=== PATIENT | female | born 1930 | race Caucasian/White ===

== ENCOUNTER 2020-03-12 16:21 | Inpatient (IN) | payer MEDICARE, BC ==
--- NOTE | 2020-03-12 16:49 | ED ---
General Adult HPI - General Chief complaint: Neuro Symptoms/Deficit Stated complaint: Acute stroke, came from [place] Time Seen by Provider: 03/12/20 16:23 Source: patient, RN/MD (Spoke with transferring physician Dr. sheffield), EMS, RN notes reviewed, old records reviewed Mode of arrival: EMS Limitations: no limitations - History of Present Illness Initial comments: Patient is a pleasant 89-year-old female presenting to the emergency Department as a transfer with concerns for TIA. Patient reportedly had facial numbness 3 days ago. Patient reportedly had episode of problems moving her tongue and slurred speech that occurred this morning and last around 10 minutes. Symptoms have mostly resolved. Patient states there is still some mild difficulty moving her tongue. Onset of symptoms this morning was 8:30 AM. No extremity weakness or paresthesias. No confusion. - Related Data Allergies Allergy/AdvReac Type Severity Reaction Status Date / Time No Known Allergies Allergy Verified 03/12/20 16:37 Review of Systems ROS Statement: Those systems with pertinent positive or pertinent negative responses have been documented in the HPI. ROS Other: All systems not noted in ROS Statement are negative. Constitutional: Denies: fever Eyes: Denies: eye pain ENT: Reports: as per HPI. Denies: ear pain Respiratory: Denies: cough, dyspnea Cardiovascular: Denies: chest pain Endocrine: Denies: fatigue Gastrointestinal: Denies: abdominal pain Genitourinary: Denies: dysuria Musculoskeletal: Denies: back pain Skin: Denies: rash Neurological: Reports: as per HPI. Denies: headache, confusion Past Medical History Past Medical History: Hypertension Additional Past Medical History / Comment(s): Non-hodgkins lymphoma History of Any Multi-Drug Resistant Organisms: None Reported Past Surgical History: No Surgical Hx Reported Past Psychological History: No Psychological Hx Reported Smoking Status: Current some day smoker Past Alcohol Use History: None Reported Past Drug Use History: None Reported General Exam Limitations: no limitations General appearance: alert, in no apparent distress Head exam: Present: normocephalic Eye exam: Present: normal appearance, PERRL, EOMI. Absent: nystagmus ENT exam: Present: normal oropharynx, other (Tongue does deviate the left) Neck exam: Present: normal inspection Respiratory exam: Present: normal lung sounds bilaterally Cardiovascular Exam: Present: regular rate, normal rhythm GI/Abdominal exam: Present: soft. Absent: tenderness Extremities exam: Present: normal inspection Neurological exam: Present: alert, CN II-XII intact (Tongue is noted to be deviated the left). Absent: motor sensory deficit Expanded Speech: Present: fluid speech Cranial nerves: EOM's Intact: Normal, Tongue Deviation: Abnormal Left, Facial Sensation: Normal Sensory exam: Upper Extremity Light Touch: Normal, Lower Extremity Light Touch: Normal Motor strength exam: RUE: 5, LUE: 5, RLE: 5, LLE: 5 Eye Response: (4) open spontaneously Motor Response: (6) obeys commands Verbal Response: (5) oriented Psychiatric exam: Present: normal affect, normal mood Skin exam: Present: normal color Course Vital Signs 03/12/20 16:26 Temperature 98.2 F Pulse Rate 105 H Respiratory 18 Rate Blood Pressure 146/86 O2 Sat by Pulse 97 Oximetry Medical Decision Making - Medical Decision Making Case was discussed with Dr. Johnson, who will admit. Disposition Clinical Impression: Transient cerebral ischemia Disposition: ADMITTED IP TO THIS HOSP Is patient prescribed a controlled substance at d/c from ED?: No Referrals: Mark Acuña MD [Primary Care Provider] - 1-2 days Decision Time: 16:49
[2020-03-12] MEDS ORDERED: ASPIRIN 325 MG TAB PO STA (16:56)
[2020-03-12] MEDS: SODIUM CHLORIDE 0.9% 1,000 ML IV SCH (17:18)
--- NOTE | 2020-03-12 17:57 | US ---
EXAMINATION TYPE: US carotid duplex BILAT DATE OF EXAM: 03/12/2020 COMPARISON: NONE CLINICAL HISTORY: Stenosis. Stenosis per order. Hx hypertension. Hx Non-Hodgkin's Lymphoma per patien t. Patient has "lumps in her neck". EXAM MEASUREMENTS: RIGHT: Peak Systolic Velocity (PSV) cm/sec ----- Right CCA: 69.6 ----- Right ICA: 102.9 ----- Right ECA: 72.2 ICA/CCA ratio: 1.5 RIGHT: End Diastole cm/sec ----- Right CCA: 20.1 ----- Right ICA: 33.7 ----- Right ECA: 13.9 LEFT: Peak Systolic Velocity (PSV) cm/sec ----- Left CCA: 65.6 ----- Left ICA: 156.9 ----- Left ECA: 92.3 ICA/CCA ratio: 2.4 LEFT: End Diastole cm/sec ----- Left CCA: 21.6 ----- Left ICA: 56.4 ----- Left ECA: 14.6 VERTEBRALS (direction of flow): Right Vertebral: Antegrade Left Vertebral: Antegrade Rhythm: Normal Intimal thickening seen bilaterally. Minimal plaque seen bilateral bulbs. Left ICA dives quickly post erior. Elevated velocity within left ICA. Several hypoechoic areas seen bilaterally in the neck. The largest hypoechoic, vacular area seen on the right appears to measure: 3.6 x 2.8 x 1.7 cm. The largest hypoechoic, vacular area seen on the left appears to measure: 2.0 x 1.4 x 1.1 cm. IMPRESSION: There is antegrade flow in the vertebral arteries. 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 There are enlarged cervical lymph nodes that measure up to 3.6 x 1.7 cm. Criteria for Assigning % of Stenosis / Diameter reduction (Estimation based on the indirect measurements of the internal carotid artery velocities (ICA PSV). 1. Normal (no stenosis)=ICA PSV < 125 cm/s: ratio < 2.0: ICA EDV<40 cm/s. 2. Less than 50% stenosis=ICA PSV < 125 cm/s: ratio < 2.0: ICA EDV<40 cm/s. 3. 50 to 69% stenosis=ICA PSV of 125 to 230 cm/s: ration 2.0 ? 4.0: ICA EDV 40-100 cm/s. 4. Greater than 70% stenosis to near occlusion= ICA PSV > 230 cm/s: ratio > 4.0: ICA EDV > 100 cm/s. 5. Near occlusion= ICA PSV velocities may be low or undetectable: variable ratio and ICA EDV. 6. Total occlusion=unable to detect flow.
[2020-03-13] MEDS: SODIUM CHLORIDE 0.9% 1,000 ML IV SCH ×2 (03:54→16:38)
[2020-03-13 08:36] LABS: Cholesterol 167 mg/dL (<200); HDL Cholesterol 53 mg/dL (40-60); LDL Cholesterol,Calculated 97 mg/dL (0-99); Triglycerides 86 mg/dL (<150)
[2020-03-13] MEDS: ASPIRIN 325 MG TAB PO SCH (09:03)
--- NOTE | 2020-03-13 09:14 | ECHOF ---
Referral Reason:Thrombus MEASUREMENTS -------- HEIGHT: 147.3 cm WEIGHT: 53.5 kg BP: 126/65 RVIDd: 3.2 cm (< 3.3) IVSd: 1.2 cm (0.6 - 1.1) LVIDd: 3.7 cm (3.9 - 5.3) LVPWd: 1.1 cm (0.6 - 1.1) IVSs: 1.8 cm LVIDs: 1.9 cm LVPWs: 1.7 cm LAESV Index (A-L): 44.44 ml/m Ao Diam: 2.8 cm (2.0 - 3.7) AV Cusp: 2.0 cm (1.5 - 2.6) MV EXCURSION: 17.614 mm (> 18.000) MV EF SLOPE: 52 mm/s (70 - 150) EPSS: 0.2 cm MV E Anirudh: 0.86 m/s MV DecT: 242 ms MV A Anirudh: 1.17 m/s MV E/A Ratio: 0.74 AR PHT: 339 ms RAP: 5.00 mmHg RVSP: 57.31 mmHg FINDINGS -------- Sinus rhythm. This was a technically good study. The left ventricular size is normal. There is mild concentric left ventricular hypertrophy. Overa ll left ventricular systolic function is normal with, an EF between 55 - 60 %. The diastolic fillin g pattern indicates impaired relaxation 14.02. The right ventricle is normal in size. LA is severely dilated >40 ml/m2 The right atrial size is normal. Interatrial and interventricular septum intact. The aortic valve is trileaflet and appears structurally normal. There is mild aortic valve sclerosi s. There is mild aortic regurgitation. There is no evidence of aortic stenosis. Moderate mitral regurgitation is present. Moderate tricuspid regurgitation present. There is moderate pulmonary hypertension. The right atiya tricular systolic pressure, as measured by Doppler, is 57.31mmHg. Trace/mild (physiologic) pulmonic regurgitation. The aortic root size is normal. Normal inferior vena cava with normal inspiratory collapse consistent with estimated right atrial pre ssure of 5 mmHg. There is no pericardial effusion. CONCLUSIONS -------- 1. The left ventricular size is normal. 2. There is mild concentric left ventricular hypertrophy. 3. Overall left ventricular systolic function is normal with, an EF between 55 - 60 %. 4. The diastolic filling pattern indicates impaired relaxation 14.02.. 5. LA is severely dilated >40 ml/m2 6. There is mild aortic valve sclerosis. 7. There is mild aortic regurgitation. 8. Moderate mitral regurgitation is present. 9. Moderate tricuspid regurgitation present. 10. There is moderate pulmonary hypertension. 11. The right ventricular systolic pressure, as measured by Doppler, is 57.31mmHg. 12. Trace/mild (physiologic) pulmonic regurgitation. SIGN BUILDER: Margarita Connolly RDCS
--- NOTE | 2020-03-13 12:46 | P.HPIM ---
History of Present Illness Patient is a very pleasant 89-year-old female is admitted with concerns of DKA patient has problems with weakness on the left side of the tongue and some speech abnormality along with some question will facial numbness although patient denied any facial numbness to me. Patient symptoms has been going on for 3 days patient is admitted for possible TIA evaluation. Patient does have history of lymphoma wasn't chemotherapy years ago and this was discontinued. Patient had non-Hodgkin's lymphoma last received chemotherapy about 4 years ago. Patient does have lymphadenopathy in the neck. Patient appears to have only involvement of polyp cranial lower or hypoglossal nerve on the left side without any other cranial nerve involvement of any other cranial nerves. Patient denied any other weakness or paresthesias. Patient's LDL is 97 and carotid Doppler showed around 50-70% stenosis on the left internal cavitated and a 50% of that in the right internal carotid. Patient doesn't have any critical stenosis. Patient had echocardiogram which showed normal ejection fraction, no ventricular thrombus but did does have pulmonary hypertension moderate with obvious it. Of around 57. She was later evaluated by neurology and they recommended CT of the neck as there is a concern of compression of his 12 cranial nerve from his cervical lymphadenopathy. CTA of the neck is being obtained an MRI is being obtained as well to rule out any brainstem strokes Review of Systems REVIEW OF SYSTEMS: CONSTITUTIONAL: No fever, no malaise, no fatigue. HEENT: No recent visual problems or hearing problems. Denied any sore throat. CARDIOVASCULAR: No chest pain, orthopnea, PND, no palpitations, no syncope. PULMONARY: No shortness of breath, no cough, no hemoptysis. GASTROINTESTINAL: No diarrhea, no nausea, no vomiting, no abdominal pain. NEUROLOGICAL: No headaches. HEMATOLOGICAL: Denies any bleeding or petechiae. GENITOURINARY: Denies any burning micturition, frequency, or urgency. MUSCULOSKELETAL/RHEUMATOLOGICAL: Denies any joint pain, swelling, or any muscle pain. ENDOCRINE: Denies any polyuria or polydipsia. The rest of the 14-point review of systems is negative. Past Medical History Past Medical History: Hypertension Additional Past Medical History / Comment(s): Non-hodgkins lymphoma History of Any Multi-Drug Resistant Organisms: None Reported Past Surgical History: No Surgical Hx Reported Past Anesthesia/Blood Transfusion Reactions: No Reported Reaction Past Psychological History: No Psychological Hx Reported Smoking Status: Never smoker Past Alcohol Use History: None Reported Past Drug Use History: None Reported Medications and Allergies Home Medications Medication Instructions Recorded Confirmed Type Metoprolol Tartrate [Lopressor] 25 mg PO BID 03/12/20 03/12/20 History Allergies Allergy/AdvReac Type Severity Reaction Status Date / Time Penicillins Allergy Unknown Verified 03/12/20 17:10 Physical Exam Vitals: Vital Signs Temp Pulse Pulse Resp BP BP Pulse Ox 03/13/20 12:00 103 H 18 146/73 95 03/13/20 08:59 98.6 F 97 18 137/75 96 03/13/20 03:59 97.9 F 92 16 126/65 96 03/13/20 03:57 97.9 F 92 16 126/65 96 03/12/20 23:57 98.0 F 73 73 16 143/65 143/65 96 03/12/20 21:45 98.1 F 78 16 147/77 96 03/12/20 21:29 78 18 03/12/20 19:00 81 18 129/73 95 03/12/20 18:57 80 18 129/73 95 03/12/20 18:35 83 18 134/75 95 03/12/20 17:57 81 18 134/75 96 03/12/20 17:35 80 18 147/78 95 03/12/20 16:57 80 18 134/75 95 03/12/20 16:26 98.2 F 105 H 18 146/86 97 Intake and Output 03/12/20 03/13/20 03/13/20 22:59 06:59 14:59 Intake Total 400 Balance 400 Intake: Intake, IV Titration 400 Amount Sodium Chloride 0.9% 1, 400 000 ml @ 100 mls/hr IV . Q10H [facility] Rx#:[id number] Other: Voiding Method Toilet Toilet Toilet # Voids 1 3 1 Weight 56.699 kg 53.6 kg PHYSICAL EXAMINATION: GENERAL: The patient is alert and oriented x3, not in any acute distress. Well developed, well nourished. HEENT: Pupils are round and equally reacting to light. EOMI. No scleral icterus. No conjunctival pallor. Normocephalic, atraumatic. No pharyngeal erythema. No thyromegaly. CARDIOVASCULAR: S1 and S2 present. No murmurs, rubs, or gallops. PULMONARY: Chest is clear to auscultation, no wheezing or crackles. ABDOMEN: Soft, nontender, nondistended, normoactive bowel sounds. No palpable organomegaly. MUSCULOSKELETAL: No joint swelling or deformity. EXTREMITIES: No cyanosis, clubbing, or pedal edema. NEUROLOGICAL: Patient has weakness on the left side of the tongue but no other focal deficit was appreciated. SKIN: No rashes. 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 We'll also rule out brainstem stroke. Patient is undergoing stroke workup patient workup as mentioned above patient will be continued on aspirin and a statin for now. Depending on the CT of the neck we probably may need to consult oncology. -Speech abnormality: Secondary to paralysis of the tongue, hypoglossal nerve palsy -Moderate pulmonary hypertension -History of non-Hodgkin's lymphoma wasn't chemotherapy 4 years ago. -Sinus tachycardia probably reflux tachycardia as patient did not receive. Metoprolol patient will be resumed on this medication -Essential hypertension -DVT prophylaxis with Lovenox
--- NOTE | 2020-03-13 13:11 | CT ---
EXAMINATION TYPE: CT neck chest w con DATE OF EXAM: 03/13/2020 COMPARISON: None HISTORY: enlarged lymph nodes CONTRAST: CT scan of the neck is performed with IV Contrast, patient injected with 100 mL of Isovue 370. Contrast enhanced CT of the neck was performed from the skull base through the lung apices. AIRWAY: The supraglottic, glottic, and subglottic portions of the airway appear patent and free of mass. SALIVARY GLANDS: The submandibular and parotid glands are free of mass or inflammatory process. THYROID GLAND: Nonspecific thyroid nodularity identified. LYMPH NODES: Bilateral internal jugular chain adenopathy noted measuring up to 2.1 cm on the right an d up to approximately 1.2 cm on the left. There is also evidence of supraclavicular adenopathy bilate rally measuring 1.1 cm on the left and 1.2 cm on the right. Adenopathy is also noted of the posterior triangles with multiple lymph nodes seen bilaterally greater than 1 cm. LUNG APICES: No nodule or mass is seen. OTHER: Vascular structures are patent. No significant degenerative change of the cervical spine. N o abscess seen. IMPRESSION: 1. Adenopathy as discussed above. 2. Nonspecific thyroid nodularity. EXAMINATION TYPE: CT neck chest w con DATE OF EXAM: 03/13/2020 COMPARISON: HISTORY: enlarged lymph nodes Automated exposure control for dose reduction was used. CONTRAST: CT scan of the chest is performed with IV Contrast, patient injected with 100 mL of Isovue 370. FINDINGS: LUNGS: The lungs are grossly clear, there is no concerning parenchymal mass or nodule identified. T here is no pleural effusion or pneumothorax seen. The tracheobronchial tree is patent. MEDIASTINUM: There are no greater than 1 cm hilar or mediastinal lymph nodes. No pericardial effusi on is seen. Ascending thoracic aortic aneurysm measuring 4.2 cm in AP dimension. The heart is not enl arged. UPPER ABDOMEN: No significant abnormality appreciated. OTHER: There is bilateral axillary adenopathy identified. The largest lymph node right axilla measur es 2.6 cm while on the left measures 2.2 cm. There is bilateral paraspinal soft tissues extending fro m approximately T7-T12 of uncertain etiology. Degenerative changes thoracic spine. Curvature noted convex to the left. IMPRESSION: 1. Axillary adenopathy seen bilaterally. 2. Paraspinal soft tissue right slightly greater than left extending from T7 through T12 of uncertain etiology.
[2020-03-13] MEDS: METOPROLOL TARTRATE 25 MG TAB PO SCH ×2 (15:07→21:24)
--- NOTE | 2020-03-13 15:19 | MR ---
EXAMINATION TYPE: MR brain wo/w con DATE OF EXAM: 03/13/2020 COMPARISON: CT brain 03/12/2020 HISTORY: Stroke CONTRAST: Performed utilizing 5.5 mL intravenous Gadavist gadolinium contrast. TECHNIQUE: Multiplanar, multiecho imaging on a 3.0 Vianney magnet is performed through the brain. Stud y is performed within 24 hours of arrival to the hospital. The craniovertebral junction is normal. The pituitary is normal. Diffusion-weighted imaging is performed. No abnormal hyperintensity is present to suggest an acute i ntracranial infarct or acute ischemic change. Periventricular white matter hypodensity, likely on the basis of chronic white matter ischemic change s Ventricles and sulci are mildly prominent. for the patient age. IMPRESSIONS: 1. Atrophy with periventricular white matter ischemic changes. 2. No acute intracranial process.
--- NOTE | 2020-03-13 17:53 | P.CNNES ---
History of Present Illness Consult date: 03/13/20 Requesting physician: Nick Raymond Reason for Consult: TIA/CVA History of Present Illness: Patient is a 89-year-old female came to the hospital yesterday at 4:21 PM by ambulance, as a transfer with concerns for TIA. Patient states that she was eating oatmeal, and was not able to swallow or push the food back with her tongue, so she could swallow. She has to use water to help swallow. Her daughter also noticed that she was slurring her speech therefore brought her to the hospital. ED report mentions about facial numbness 3 days ago, although patient denies any numbness. She still has some difficulty moving her tongue. Patient denies any symptoms related to the extremities, like numbness tingling. Denies headache. Vital signs was 146/86 pulse rate 105 temperature 98.2. Carotid Doppler showed antegrade flow in the vertebral arteries. 50-70% stenosis in the left ICA and close to 50% stenosis in the right ICA. Enlarged cervical lymph nodes that measures up to 3.6 x 1.7 cm. 2-D echo showed normal left-ventricular size. Mild concentric LVH, EF is between 55-60%. Left atrium is severely dilated. Mild aortic valve sclerosis. Moderate MR. Patient's lipid panel shows cholesterol 167, LDL 97, HDL 53 and triglycerides 86. Patient takes metoprolol 25 mg twice a day at home. Patient has been started on aspirin 325 mg. Patient states she was diagnosed with non-Hodgkin's lymphoma. She was getting chemotherapy, but her insurance would not approve one of the chemotherapeutic agent. Therefore it was stopped. Review of Systems As mentioned above in HPI. All other 14 point review of systems unremarkable. Patient is very hard of hearing. Patient denies any ptosis, double vision, dyspnea, muscle fasciculations. Past Medical History Past Medical History: Hypertension Additional Past Medical History / Comment(s): Non-hodgkins lymphoma History of Any Multi-Drug Resistant Organisms: None Reported Past Surgical History: No Surgical Hx Reported Past Anesthesia/Blood Transfusion Reactions: No Reported Reaction Past Psychological History: No Psychological Hx Reported Smoking Status: Never smoker Past Alcohol Use History: None Reported Past Drug Use History: None Reported Medications and Allergies Home Medications Medication Instructions Recorded Confirmed Type Metoprolol Tartrate [Lopressor] 25 mg PO BID 03/12/20 03/12/20 History Allergies Allergy/AdvReac Type Severity Reaction Status Date / Time Penicillins Allergy Unknown Verified 03/12/20 17:10 Physical Examination - Vital Signs Vital Signs: Vital Signs Temp Pulse Pulse Resp BP BP Pulse Ox 03/13/20 08:59 98.6 F 97 18 137/75 96 03/13/20 03:59 97.9 F 92 16 126/65 96 03/13/20 03:57 97.9 F 92 16 126/65 96 03/12/20 23:57 98.0 F 73 73 16 143/65 143/65 96 03/12/20 21:45 98.1 F 78 16 147/77 96 03/12/20 21:29 78 18 03/12/20 19:00 81 18 129/73 95 03/12/20 18:57 80 18 129/73 95 03/12/20 18:35 83 18 134/75 95 03/12/20 17:57 81 18 134/75 96 03/12/20 17:35 80 18 147/78 95 03/12/20 16:57 80 18 134/75 95 03/12/20 16:26 98.2 F 105 H 18 146/86 97 Intake and Output 03/12/20 03/13/20 03/13/20 22:59 06:59 14:59 Intake Total 400 Balance 400 Intake: Intake, IV Titration 400 Amount Sodium Chloride 0.9% 1, 400 000 ml @ 100 mls/hr IV . Q10H [facility] Rx#:[id number] Other: Voiding Method Toilet Toilet # Voids 1 3 Weight 56.699 kg 53.6 kg On examination patient is an elderly female very pleasant in no acute distress. Patient is alert and awake fully oriented. Speech is mild to moderately dysarthric, but no aphasia. Attention, concentration and fund of knowledge is adequate. On cranial nerve exam. Pupils are round and reactive to light, visual luna are full on confrontation, extraocular muscles are intact with no nystagmus. Face is symmetric, tongue protrudes to the left side. Patient can move her tongue to the right, but not at all to the left side. Questionable mild atrophy of the left tongue. No fasciculations elsewhere. Palatal elevation appears equal. Palatal sensation equal, but she had decreased gag. Shoulder shrug normal. Facial sensations normal. On muscle strength testing there is no pronator drift and the strength is normal in arms and legs distally and proximally. Reflexes are 1+ and plantars are downgoing. Sensory touch is equal with no neglect. No ataxia for [id number] or [id number] testing. Tone and bulk of muscles normal. Gait deferred. On general examination, there is no carotid bruit or murmur, patient has multiple very prominent palpable lymph nodes noted on either side of the neck. Chest is clear, abdomen soft nontender, peripheral pulses present. No peripheral edema. Assessment and Plan Assessment: * 89-year-old female with acute onset of slurred speech, and difficulty swallowing. Examination reveals weakness of left side of the tongue with mild left xuan-tongue atrophy. Patient has very prominent lymph nodes in the neck. Rule out compressive lesion from non-Hodgkin's lymphoma. * History of non-Hodgkin's lymphoma. Plan: * MRI of brain with and without contrast to rule out metastatic disease, compressive lesion or CVA. * CT of the neck with IV contrast to follow-up on her non-Hodgkin's lymphoma and assess for lymph nodes. * May need oncology consultation and perhaps ENT. * Neurology coverage not available on the weekend. * May perfect serve if needed. Dr. Dalton Kenney will resume neurology service on Monday. * Discussed with Dr. Gomez in detail. Addendum: MRI of the brain with and without contrast was performed. Radiologist reported as atrophy with periventricular white matter ischemic change. No acute intracranial process. 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 Recommend oncology consultation. High-volume spinal tap with flow cytometry, cytology to evaluate for meningeal carcinomatosis.
[2020-03-13] MEDS: ATORVASTATIN 40 MG TAB PO SCH (21:24)
[2020-03-14] MEDS: SODIUM CHLORIDE 0.9% 1,000 ML IV SCH ×2 (02:56→03:08)
[2020-03-14] MEDS: ASPIRIN 325 MG TAB PO SCH (09:04)
[2020-03-14] MEDS: METOPROLOL TARTRATE 25 MG TAB PO SCH ×2 (09:04→21:19)
[2020-03-14] MEDS: ENOXAPARIN 40 MG/0.4 ML SYRINGE SQ SCH (09:04)
[2020-03-14 13:16] LABS: Basophils # (A) 0.1 k/uL (0-0.2); Basophils % (A) 1 %; Eosinophils # (A) 0.1 k/uL (0-0.7); Eosinophils % (A) 1 %; HCT 38.7 % (34.0-46.0); HGB 13.1 gm/dL (11.4-16.0); Lymphocytes # (A) 1.2 k/uL (1.0-4.8); Lymphocytes % (A) 17 %; MCH 32.2 pg (25.0-35.0); MCHC 33.9 g/dL (31.0-37.0); MCV 95.2 fL (80.0-100.0); Mean Platelet Volume 6.8; Monocytes # (A) 0.2 k/uL (0-1.0); Monocytes % (A) 4 %; Neutrophils # (A) 5.1 k/uL (1.3-7.7); Neutrophils % (A) 76 %; Platelet Count 188 k/uL (150-450); RBC 4.07 m/uL (3.80-5.40); RDW 13.5 % (11.5-15.5); WBC 6.7 k/uL (3.8-10.6)
[2020-03-14 13:26] LABS: Albumin 4.2 g/dL (3.5-5.0); Calcium 8.8 mg/dL (8.4-10.2); Potassium 4.3 mmol/L (3.5-5.1); Total Bilirubin 0.8 mg/dL (0.2-1.3); Total Protein 6.7 g/dL (6.3-8.2); Uric Acid 4.1 mg/dL (3.7-7.4)
--- NOTE | 2020-03-14 13:32 | P.PN ---
Subjective 89-year-old pleasant male was admitted for weakness in the left side of the tongue and atrophy of the left side of tongue: Patient had a significant lymphadenopathy from her lymphoma. It was believed patient may have compression from this lymphadenopathy leading to hypoglossal nerve palsy leading to some dysphagia from atrophy of the tongue and speech abnormality from the atrophy and weakness of the left side of the tongue. 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 Patient had a CT of the neck and chest which showed significant lymphadenopathy in the supraclavicular area and jugular area and there is significant paratracheal lymphadenopathy as well. She does have inguinal lymphadenopathy as well. Constitutional: Denied any fatigue denied any fever. Cardio vascular: denied any chest pain, palpitations Gastrointestinal denied any nausea vomiting Pulmonary: Denied any shortness of breath cough Neurologic denied any new focal deficits All inpatient medications were reviewed and appropriate changes in these medications as dictated in the interval history and assessment and plan. Objective - Vital Signs Vital signs: Vital Signs Temp 97.9 F 03/14/20 08:50 Pulse 84 03/14/20 08:50 Resp 18 03/14/20 08:50 BP 156/76 03/14/20 08:50 Pulse Ox 96 03/14/20 08:50 Intake & Output 03/13/20 03/14/20 03/14/20 18:59 06:59 18:59 Intake Total 1030 240 Output Total 200 Balance 1030 -200 240 Weight 52.5 kg Intake: Intake, IV Titration 550 Amount Sodium Chloride 0.9% 1, 550 000 ml @ 100 mls/hr IV . Q10H [facility] Rx#:[id number] Oral 480 240 Output: Urine 200 Other: Voiding Method Toilet Toilet Toilet # Voids 4 1 2 - Exam PHYSICAL EXAMINATION: GENERAL: The patient is alert and oriented x3, not in any acute distress. Well developed, well nourished. HEENT: Pupils are round and equally reacting to light. EOMI. No scleral icterus. No conjunctival pallor. Normocephalic, atraumatic. No pharyngeal erythema. No thyromegaly. CARDIOVASCULAR: S1 and S2 present. No murmurs, rubs, or gallops. PULMONARY: Chest is clear to auscultation, no wheezing or crackles. ABDOMEN: Soft, nontender, nondistended, normoactive bowel sounds. No palpable organomegaly. MUSCULOSKELETAL: No joint swelling or deformity. EXTREMITIES: No cyanosis, clubbing, or pedal edema. Lymphadenopathy as described in the interval history NEUROLOGICAL: Patient has weakness on the left side of the tongue but no other focal deficit was appreciated. SKIN: No rashes. 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 She had an MRI which didn't show any stroke or leptomeningeal enhancement, CT of the neck and chest as mentioned above. ENT w ill be consulted to evaluate the posterior pharynx. -Speech abnormality: Secondary to paralysis of the tongue, hypoglossal nerve palsy -Dysphagia: Patient need to be on modified diet was evaluated by speech therapy secondary to assessment #1 -Moderate pulmonary hypertension -History of non-Hodgkin's lymphoma wasn't chemotherapy 4 years ago. Concern for transformation of this non-Hodgkin's lymphoma from Road great to high-grade, oncology valid the patient is recommending biopsy of the lymph nodes -Sinus tachycardia probably reflux tachycardia as patient did not receive. Metoprolol patient will be resumed on this medication -Essential hypertension -DVT prophylaxis with Lovenox
[2020-03-14] MEDS: IOPAMIDOL CONTRAST (ORAL USE) VIAL PO PRN ×2 (14:43→15:46)
--- NOTE | 2020-03-14 15:31 | CONS ---
CONSULTATION DATE OF SERVICE: March 14, 2020 REASON FOR CONSULTATION: Lymphoma. CHIEF COMPLAINT: Weakness in her tongue and difficulty swallowing. HISTORY OF PRESENT ILLNESS: Catalina is a very pleasant 89-year-old lady who presented to the hospital with weakness in her tongue with inability to move her tongue to the left and difficulty swallowing. This has been going on for the last few days. The patient came into the hospital. She did have a brain MRI which was basically negative showing atrophy with nonspecific white matter changes, and she did have a CT scan of the neck, which revealed bilateral cervical adenopathy. She was seen by Neurology Service for further evaluation and I was asked to see the patient because of her history of lymphoma. The patient stated she was diagnosed with non-Hodgkin lymphoma. She does not know exactly what type of non-Hodgkin lymphoma about 4 years ago at [facility] in [place] and she was treated by Dr. Grove. She stated she received IV treatment. Again, she is not sure what kind of IV treatment she received and she was last seen by her oncologist almost 2 years ago. The patient stated that over the last few weeks, also she has been having some night sweats and she has lost about 7 pounds. And this difficulty swallowing that started few days ago and inability to move her tongue to the left. Also, she had some numbness in her lower lip, which has resolved. She denies any headaches, blurred vision, and she denies any nausea or vomiting. Normal bowel movement. No reported melena, hematochezia, hematuria, hemoptysis, hematemesis or epistaxis. No itching. She denies any visual problem. PAST MEDICAL HISTORY: In addition to what is stated above in regard to her non-Hodgkin lymphoma, she has a history of hypertension. SOCIAL HISTORY: No history of smoking, alcohol abuse or substance abuse. REVIEW OF SYSTEMS: As stated above in history of present illness. HOSPITAL MEDICATIONS: Include metoprolol 25 mg b.i.d., aspirin 325 mg daily, Lipitor 40 mg daily, Lovenox 40 mg subcu daily. ALLERGIES: She is allergic to PENICILLIN. PHYSICAL EXAMINATION: GENERAL: She is alert, oriented x3. She does not appear to be in any acute distress. Well developed, well nourished. VITAL SIGNS: Her vital signs are temperature 97.9. Afebrile. Pulse 84, regular, respiration 18, and blood pressure 156/76. HEENT: Normocephalic, atraumatic. There is no obvious scleral icterus. She is unable to move her tongue to the left, but there is no other associated neurological finding. NECK: Supple. No jugular venous distention. LUNGS: Chest equal expansion bilaterally. Lungs are clear to auscultation and resonant to percussion. HEART: Regular rate and rhythm. ABDOMEN: Soft. No obvious organomegaly or masses. Bowel sounds present. EXTREMITIES: Revealed no edema. SKIN: No significant bruises, ecchymosis, petechiae. LYMPHATIC SYSTEM: She has bilateral cervical and occipital lymph nodes. The largest is about 2.5 cm in the right occipital area. Also, she has bilateral axillary lymph nodes and also she has bilateral inguinal and femoral lymph node detected on physical examination. MUSCULOSKELETAL: Moving all extremities appropriately. No percussion or tenderness detected over her spine or her sternum. IMPRESSION: 1. Reported history of non-Hodgkin lymphoma, as stated above. I do not have any additional information about the type of non-Hodgkin lymphoma the patient has had. 2. Difficulty swallowing and inability to move her tongue. I did review her MRI imaging with the radiologist. There is no evidence to suggest any leptomeningeal disease and also there are no focal neurological involvement to explain her left- sided weakness. Also, I did review her CT scan of the neck as well. She has bilateral lymph nodes extending to the thoracic spine and there is some erosion to the vertebral thoracic spine, but there is no evidence of nerve compression to explain her tongue weakness. This could be related to a local involvement in her throat and also tonsil involvement for lymphoma causing the difficulty swallowing cannot be excluded. Also of concern with this generalized lymphadenopathy is that she may have a transformation of her low-grade lymphoma to a higher grade lymphoma. RECOMMENDATION: 1. I would recommend to obtain a CT scan of the chest, abdomen, and pelvis for further evaluation. 2. ENT evaluation. 3. Obtain CBC, CMP, LDH and uric acid level. 4. Surgical consultation for excision of biopsy of one of her lymph nodes. 5. Obtain her old medical records. The above was discussed with the medical team and also discussed with the patient in details and answered all questions to her satisfaction. Thank you very much for asking me to participate in the care of this nice lady's. MMODL / IJN: [id number] /
--- NOTE | 2020-03-14 16:50 | CT ---
EXAMINATION TYPE: CT abdomen pelvis w con DATE OF EXAM: 03/14/2020 COMPARISON: None HISTORY: abdominal pain, lymphoma CT DLP: 375.1 mGycm Automated exposure control for dose reduction was used. CONTRAST: Performed with IV Contrast, patient injected with 100 mL of Isovue 300. Images were obtained from the diaphragm to the floor the pelvis with oral and IV contrast. Heart is enlarged. There is no pericardial effusion. There is some pleural thickening in the right pa raspinal right lower lobe. There is no mobile pleural fluid. There is 1 cm cyst in the left lobe of the liver. The bile ducts are not dilated. Spleen is intact. T here is no pancreatic mass. Spleen measures 12 cm in length. There is no adrenal mass. Kidneys show satisfactory contrast opacification. There is no hydronephrosi s. There is massive retroperitoneal lymphadenopathy extending from the mid abdomen into the pelvis. Ther e are markedly enlarged bilateral inguinal and pelvic lymph nodes. Bladder distends smoothly. There i s a mild lumbar dextroscoliosis. There is thoracolumbar mild levoscoliosis. There is multilevel lumba r spondylotic changes. There is no compression fracture. There is bilateral L5 spondylolysis. There i s a mild first-degree L5-S1 spondylolisthesis. There is no evidence of a bowel obstruction. There is no mesenteric edema. There is no ascites or estelita e air. Delayed images show normal renal excretion. Appendix is not seen. There is no sign of thickene d appendix. IMPRESSION: Massive retroperitoneal and pelvic and inguinal lymphadenopathy. Nodes measure up to 7 cm. Cardiomegaly.
[2020-03-14] MEDS: ATORVASTATIN 40 MG TAB PO SCH (21:19)
[2020-03-15] MEDS: ENOXAPARIN 40 MG/0.4 ML SYRINGE SQ SCH (07:41)
--- NOTE | 2020-03-15 08:04 | P.PN ---
Subjective 89-year-old pleasant male was admitted for weakness in the left side of the tongue and atrophy of the left side of tongue: Patient had a significant lymphadenopathy from her lymphoma. It was believed patient may have compression from this lymphadenopathy leading to hypoglossal nerve palsy leading to some dysphagia from atrophy of the tongue and speech abnormality from the atrophy and weakness of the left side of the tongue. 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 Patient had a CT of the neck and chest which showed significant lymphadenopathy in the supraclavicular area and jugular area and there is significant paratracheal lymphadenopathy as well. She does have inguinal lymphadenopathy as well. 03/23/2020 Patient is retaining food in mouth because of paralysis of time and the muscle paralysis in the throat area. And this is secondary to hypoglossal nerve palsy. Patient will be made nothing by mouth patient will be started on D5 normal at 50 mL per hour. Patient may end up needing a PEG tube placement same thing was discussed with the patient. Patient will need a biopsy of the lymph node CT of the abdomen that was done and it showed diffuse lymphadenopathy in the abdomen concern is transformation of her low-grade lymphoma to a higher grade. Constitutional: Denied any fatigue denied any fever. Cardio vascular: denied any chest pain, palpitations Gastrointestinal denied any nausea vomiting Pulmonary: Denied any shortness of breath cough Neurologic denied any new focal deficits All inpatient medications were reviewed and appropriate changes in these medications as dictated in the interval history and assessment and plan. Objective - Vital Signs Vital signs: Vital Signs Temp 97.5 F L 03/15/20 07:37 Pulse 94 03/15/20 07:37 Resp 18 03/15/20 07:37 BP 144/81 03/15/20 07:37 Pulse Ox 96 03/15/20 04:00 Intake & Output 03/14/20 03/15/20 03/15/20 18:59 06:59 18:59 Intake Total 360 1200 Balance 360 1200 Weight 53.5 kg Intake: Oral 360 1200 Other: Voiding Method Toilet Toilet # Voids 1 2 - Exam PHYSICAL EXAMINATION: GENERAL: The patient is alert and oriented x3, not in any acute distress. Well developed, well nourished. HEENT: Pupils are round and equally reacting to light. EOMI. No scleral icterus. No conjunctival pallor. Normocephalic, atraumatic. No pharyngeal erythema. No thyromegaly. CARDIOVASCULAR: S1 and S2 present. No murmurs, rubs, or gallops. PULMONARY: Chest is clear to auscultation, no wheezing or crackles. ABDOMEN: Soft, nontender, nondistended, normoactive bowel sounds. No palpable organomegaly. MUSCULOSKELETAL: No joint swelling or deformity. EXTREMITIES: No cyanosis, clubbing, or pedal edema. Lymphadenopathy as described in the interval history NEUROLOGICAL: Patient has weakness on the left side of the tongue but no other focal deficit was appreciated. SKIN: No rashes. 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 She had an MRI which didn't show any stroke or leptomeningeal enhancement, CT of the neck and chest as mentioned above. ENT will be consulted to evaluate the posterior pharynx. The of the abdomen did show diffuse abdominal lymphadenopathy and patient has significant swallow problems will probably need PEG tube placement -Speech abnormality: Secondary to paralysis of the tongue, hypoglossal nerve p alsy -Dysphagia: He can't swallow problems speech therapy will evaluate and reevaluate her tomorrow patient will be made nothing by mouth patient was started on D5 normal saline at 50 mL per/hr. -Moderate pulmonary hypertension -History of non-Hodgkin's lymphoma wasn't chemotherapy 4 years ago. Concern for transformation of this non-Hodgkin's lymphoma from low grade to high-grade, oncology valid the patient is recommending biopsy of the lymph nodes -Essential hypertension -DVT prophylaxis with Lovenox
[2020-03-15] MEDS: METOPROLOL TARTRATE 25 MG TAB PO SCH ×2 (08:11→21:05)
[2020-03-15] MEDS: ASPIRIN 325 MG TAB PO SCH (08:11)
[2020-03-15] MEDS: DEXTROSE 5%-0.9% NACL 1,000 ML IV SCH (10:03)
--- NOTE | 2020-03-15 11:13 | CONS ---
CONSULTATION REASON FOR CONSULTATION: Hypoglossal nerve palsy, lymphadenopathy. HISTORY OF PRESENT ILLNESS: An 89-year-old white female who had acute onset of decreased tongue mobility 5 days ago when she woke up in the morning and tried to be eat she noticed this. She had no other neurologic symptomatology. She came to the ER for evaluation. CVA and TIA were felt to be ruled out. She was noted to have lymphadenopathy with a previous history of lymphoma and workup is ongoing as far as this goes. She has had difficulty with clearing food from her mouth and therefore made n.p.o. with a PEG tube ordered. Dr. Marks has been consulted to obtain a lymph node biopsy from the femoral area were her lymph nodes quite large. The neurologist had felt that the hypoglossal nerve palsy may be from nerve compression in the neck or lymphoma with infiltration of the meninges. therapy has been consulted to further evaluate the patient. The patient has had no airway symptomatology. PAST MEDICAL HISTORY: Positive for hypertension with as well as non-Hodgkin's lymphoma. PAST SURGICAL HISTORY: None other than lymph node biopsy. SOCIAL HISTORY: Does not have a history of smoking or alcohol use. MEDICATIONS: At home, metoprolol. ALLERGIES: PENICILLIN. REVIEW OF SYSTEMS: Constitutional: No fever or fatigue. HEENT as above but no change in vision or hearing. Denies sore throat. Cardiovascular: No chest pain or palpitations. No syncope. Pulmonary: No shortness of breath or cough. No hemoptysis. GI: No diarrhea, nausea, or vomiting. No abdominal pain. Neurologic as above, but no headaches. Hematologic: Denies any bleeding or petechiae. no burning on urination or frequency. Musculoskeletal: Denies joint pain, muscle pain. Endocrine: No polydipsia. Review of systems otherwise 14 point was negative other than in the history of present illness. PHYSICAL EXAM: Vital signs were reviewed and they are as in the chart. She is afebrile with stable vital signs overall. GENERAL: Well-developed, elderly white female in no acute distress. She is alert, awake, and oriented x3 and conversant although does have some mild slurring of speech with dysarthria. HEENT: HEAD: Normocephalic and atraumatic. Ears bilaterally canals clear. Tympanic membranes unremarkable mobile. Nose shows no drainage. . Septum deviated to the right. The inferior turbinates are normal. Mouth and oropharynx shows no abnormal masses or lesions. The tongue does have decreased mobility on the left with protrusion deviating towards the left. There is also decreased palatal elevation on the left. The hypopharynx and larynx exam shows no abnormal mass or lesions with normal vocal cord mobility. The base of tongue is unremarkable. NECK: Supple. There are numerous lymph nodes palpated throughout the neck upwards of 1.5 cm. These are in the jugular chains, but also most noticeable in the supraclavicular areas. CHEST: Clear to auscultation bilaterally. ABDOMEN: Soft, nontender. Musculoskeletal: Extremities were deferred. Neurologic grossly intact other than the cranial nerve 9 and 12 palsy. SKIN: No rashes or lesions noted. ASSESSMENT: 1. Cranial nerve 12 palsy on the left, also has decreased mobility of the decreased palatal mobility on the left. 2. Dysarthria secondary to #1. 3. Cervical as well as other systemic lymphadenopathy with history of non-Hodgkin's lymphoma. PLAN: The patient will need further evaluation with speech and swallowing therapy which has been ordered including a formal modified barium swallow. She has been made n.p.o. with PEG tube ordered, which is reasonable, although she may still be able to tolerate oral intake depending on the speech and swallowing therapy evaluation. She has already had arrangements made for lymph node biopsy. Apparently, femoral node is going to be obtained according to Dr. Mosher, although one of supraclavicular nodes would be amenable to excisional biopsy also. This would be necessary to further treat the patient. As far as the reasoning behind the hypoglossal nerve palsy would suspected neurologic involvement of the nerve itself rather than compression would be more likely due to the fact that the cervical lymph nodes are not particularly massive and the central involvement of the lymphoma still needs to be entertained. This will be deferred to overall Oncology and General surgery as apparently Dr. Marks would be planning to do a lymph node biopsy, which may all be done at the same time as PEG tube placement. Otherwise, if there are further questions or concerns, please contact me. Discussed patient with Dr. Mosher in detail yesterday already. MMODL / IJN: [id number] /
--- NOTE | 2020-03-15 11:13 | PCN ---
PROCEDURE NOTE PREOP DIAGNOSES: 1. Left hypoglossal nerve palsy. 2. Dysphagia. 3. Dysarthria. POSTOP DIAGNOSES: 1. Left hypoglossal nerve palsy. 2. Dysphagia. 3. Dysarthria. PROCEDURE PERFORMED: Flexible laryngoscopy. ANESTHESIA: None. COMPLICATIONS: None. BLOOD LOSS: None. FINDINGS: No abnormalities in the oropharynx or hypopharynx, although the patient does have a hypoglossal nerve palsy on the left as well as decreased palatal elevation on the left foot. PROCEDURE DETAILS: The patient was in her hospital bed in the sitting position. Informed consent was obtained. Flexible laryngoscopy was performed through the left nasal cavity with systematic evaluation of the left nasal cavity, nasopharynx, oropharynx, hypopharynx and larynx with the above-noted findings. Normal vocal cord mobility. The laryngoscope was then withdrawn. Patient tolerated this well. No complications. MMODL / IJN: [id number] /
--- NOTE | 2020-03-15 15:11 | PN ---
PROGRESS NOTE DATE OF SERVICE: March 15, 2020. CHIEF COMPLAINT: Difficulty swallowing. Catalina is seen today as a followup. She continued to have weakness and inability to move her tongue towards the left and also she has difficulty swallowing. She was evaluated by ENT and there is no focal lesion found other than left Hypoglossal nerve palsy. She had a CT scan of the abdomen and pelvis was reviewed which revealed extensive retroperitoneal and pelvic and inguinal adenopathies measuring up to 7 cm. Otherwise she feels fine. She denies any fever or chills. No nausea or vomiting and she is able to tolerate liquids but no solid food. MEDICATION: Reviewed in her electronic medical record. PHYSICAL EXAMINATION: She is alert and oriented x3. No acute distress. Her vital signs: Temperature 97.5 afebrile, pulse 94 regular, respiration 18, blood pressure 144/81. HEENT: Normocephalic, atraumatic. NECK: Supple. Chest: Equal expansion bilaterally. Lungs are clear. Heart is regular. ABDOMEN: Soft. No tenderness. EXTREMITIES: No edema. Skin: No significant bruises. Lymphatic system showed bilateral cervical lymphadenopathy, axillary, and inguinal nodes. LABORATORY DATA: Her CBC are normal. Her chemistry panel is unremarkable. IMPRESSION: History of non-Hodgkin's lymphoma diagnosed over 4 years ago and treated by Dr. Grove in and [facility] and no oncology followup for over 2 years. Now the patient presented. She has significant bulky adenopathies and retroperitoneal pelvic and inguinal lymphadenopathies and also she has bilateral cervical and axillary lymph nodes. Also, she also has evidence of left hypoglossal nerve palsy. RECOMMENDATION: 1. It is unlikely to that her left hypoglossal nerve palsy is related to her cervical node. I did review her CT of the neck with the radiologist in detail also and no central lesion identified on brain MRI. Also the ENT evaluation revealed no focal lesion. It is reasonable to obtain an MRI of the cervical spine to further evaluate. 2. Also, if the patient develops other neurological symptoms, we may consider lumbar puncture to make sure there is no leptomeningeal disease related to her lymphoma. 3. In the meantime, awaiting surgical consult evaluation for possible biopsy related from the inguinal node to make sure there is no transformation from her known low- grade non-Hodgkin lymphoma to high-grade lymphoma. The above was discussed with the patient. I have answered all her questions. Thank you very much for asking me to participate in the care of this nice lady. MMLUIS FERNANDOL / RENYN: [id number] /
--- NOTE | 2020-03-15 16:30 | P.GSCN ---
History of Present Illness Consult date: 03/15/20 History of present illness: CHIEF COMPLAINT: Lymphoma, recurrent HISTORY OF PRESENT ILLNESS: The patient is a 89 year old female who presents with history of non-Hodgkin's lymphoma now with recurrence. She has troubles with swallowing solid foods. She can tolerate ice cream and liquids. She had completed laryngoscopy earlier today. No reports of abdominal pain. She does report palpable lymph nodes along the right neck. Her oncologist is Dr. Flores. General surgery is consulted for lymph node biopsy. She presents to the hospital as a transfer from an outside hospital for TIA. She had slurred speech that has also resolved. PAST MEDICAL HISTORY: See list and reviewed PAST SURGICAL HISTORY: See list and reviewed MEDICATIONS: See list and reviewed ALLERGIES: See list and reviewed SOCIAL HISTORY: See list and reviewed FAMILY HISTORY: See list and reviewed REVIEW OF ORGAN SYSTEMS: CONSTITUTIONAL: No fevers or chills. EYES: Denies any trouble with vision. Wears glasses. HEENT: No difficulties with hearing. No nosebleeds. No difficulty swallowing. RESPIRATORY: Denies pneumonia. Denies any troubles with breathing or dyspnea on exertion. CARDIOVASCULAR: Denies any chest pain, palpitations, or recent heart attacks. Has hypertension. GASTROINTESTINAL: Denies fatty food intolerance. Denies change in bowel habits and gas bloat. GENITOURINARY: Denies any blood in urine or increased urinary frequency. NEUROLOGICAL: Recent numbness or tingling along the distal extremities. Recent stroke. MUSCULOSKELETAL: Denies any back pain, stiffness or joint arthritis. SKIN: No current skin cancer. No rash. PSYCHIATRIC: Denies current depression or suicidal thoughts. ENDOCRINE: Denies current thyroid disorders. Denies any blood sugar glucose intolerance. HEME/LYMPHATIC: Has lumps and bumps around the neck. No recent deep venous t hrombosis. ALLERGY/IMMUNOLOGY: No immunoglobulin therapy. No immune deficiencies. PHYSICAL EXAM: VITALS: Reviewed CONSTITUTIONAL: Well developed and in no acute distress. EYES: Conjuctivae without sclera icterus. Pupils are equally round and reactive to light. Extraocular movements grossly intact. HEAD, EARS, NOSE, THROAT: Moist buccal mucosa. Head is atraumatic, normocephalic. Hears conversational speech. No nasal drainage. NECK: Supple. No JV distention. No thyroidomegaly. RESPIRATORY: Non-labored respirations and equal bilateral excursions. No gross wheezes. CARDIOVASCULAR: Regular rate and rhythm. Extremities without moderate edema. Palpable 2+ radial pulses. ABDOMEN: Soft. Non-tender. Nondistended. LYMPH: Has neck lymphadenopathy superior to the right sternocleidomastoid muscle 3-cm and at the angle of the right jaw MUSCULOSKELETAL: Nail and fingers with good capillary refill. SKIN: Warm and well perfused with good skin turgor. NEUROLOGIC: Cranial nerves II through XII grossly intact. Sensation upper and extremities intact. No focal or lateralizing signs. PSYCH: Appropriate affect. Alert and oriented to person, place and time. Displays appropriate insight. CLINCAL LABS: Reviewed. WBC 6.7. Hgb 13.1 IMAGING: CT of the abdomen and pelvis independently reviewed demonstrating moderate lymphadenopathy of the pelvis bilaterally. CT neck also independently reviewed confirming lymphadenopathy along the right posterior chain superior to the sternocleidomastoid muscle. MEDICAL REPORT: Laryngoscopy shows paralysis of laryngeal nerve. RADIOLOGY: Report reviewed ASSESSMENT: 1. Non-Hodgkins lymphoma 2. Cervical lymphadenopathy PLAN: 1. Recommend speech path for consistency of food to eat. 2. Recommend nectar thick liquids as she can tolerate ice-cream, full liquids 3. Lymph node biopsy pending Thank you for this kind consultation. Past Medical History Past Medical History: Hypertension Additional Past Medical History / Comment(s): Non-hodgkins lymphoma History of Any Multi-Drug Resistant Organisms: None Reported Past Surgical History: No Surgical Hx Reported Past Anesthesia/Blood Transfusion Reactions: No Reported Reaction Past Psychological History: No Psychological Hx Reported Smoking Status: Never smoker Past Alcohol Use History: None Reported Past Drug Use History: None Reported Medications and Allergies Home Medications Medication Instructions Recorded Confirmed Type Metoprolol Tartrate [Lopressor] 25 mg PO BID 03/12/20 03/12/20 History Allergies Allergy/AdvReac Type Severity Reaction Status Date / Time Penicillins Allergy Unknown Verified 03/12/20 17:10 Surgical - Exam Vital Signs Temp Pulse Resp BP Pulse Ox 98.2 F 105 H 18 146/86 97 03/12/20 16:26 03/12/20 16:26 03/12/20 16:26 03/12/20 16:26 03/12/20 16:26 Results - Labs 03/14/20 12:42 03/14/20 12:46 Assessment and Plan (1) Lymphoma Current Visit: Yes Status: Acute Code(s): C85.90 - NON-HODGKIN LYMPHOMA, UNSPECIFIED, UNSPECIFIED SITE SNOMED Code(s): 404096026 (2) Cervical lymphadenopathy Current Visit: Yes Status: Acute Code(s): R59.0 - LOCALIZED ENLARGED LYMPH NODES SNOMED Code(s): 670187685 (3) Transient cerebral ischemia Current Visit: Yes Status: Acute Code(s): G45.9 - TRANSIENT CEREBRAL ISCHEMIC ATTACK, UNSPECIFIED SNOMED Code(s): 980580027
[2020-03-15] MEDS: ATORVASTATIN 40 MG TAB PO SCH (21:05)
[2020-03-16] MEDS: DEXTROSE 5%-0.9% NACL 1,000 ML IV SCH (05:59)
--- NOTE | 2020-03-16 08:50 | P.PN ---
Subjective 89-year-old pleasant male was admitted for weakness in the left side of the tongue and atrophy of the left side of tongue: Patient had a significant lymphadenopathy from her lymphoma. It was believed patient may have compression from this lymphadenopathy leading to hypoglossal nerve palsy leading to some dysphagia from atrophy of the tongue and speech abnormality from the atrophy and weakness of the left side of the tongue. 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 Patient had a CT of the neck and chest which showed significant lymphadenopathy in the supraclavicular area and jugular area and there is significant paratracheal lymphadenopathy as well. She does have inguinal lymphadenopathy as well. 03/15/2020 Patient is retaining food in mouth because of paralysis of time and the muscle paralysis in the throat area. And this is secondary to hypoglossal nerve palsy. Patient will be made nothing by mouth patient will be started on D5 normal at 50 mL per hour. Patient may end up needing a PEG tube placement same thing was discussed with the patient. Patient will need a biopsy of the lymph node CT of the abdomen that was done and it showed diffuse lymphadenopathy in the abdomen concern is transformation of her low-grade lymphoma to a higher grade. 03/16/2020 Patient was a valid by speech therapy and a modified her diet and consistency. Patient will not need any PEG tube at this time. Patient will undergo lymph node biopsy. Neurology will reevaluate the patient today. Possibility of discharge tomorrow. Constitutional: Denied any fatigue denied any fever. Cardio vascular: denied any chest pain, palpitations Gastrointestinal denied any nausea vomiting Pulmonary: Denied any shortness of breath cough Neurologic denied any new focal deficits All inpatient medications were reviewed and appropriate changes in these medications as dictated in the interval history and assessment and plan. Objective - Vital Signs Vital signs: Vital Signs Temp 98.8 F 03/16/20 04:00 Pulse 84 03/16/20 04:00 Resp 18 03/16/20 04:00 BP 137/62 03/16/20 04:00 Pulse Ox 96 03/16/20 04:00 Intake & Output 03/15/20 03/16/20 03/16/20 18:59 06:59 18:59 Intake Total 620 Balance 620 Weight 52.5 kg Intake: IV 500 Dextrose 5%-0.9% NaCl 1, 500 000 ml @ 50 mls/hr IV . Q20H [facility] Rx#:[id number] Oral 120 Other: Voiding Method Toilet Toilet # Voids 2 1 - Exam PHYSICAL EXAMINATION: GENERAL: The patient is alert and oriented x3, not in any acute distress. Well developed, well nourished. HEENT: Pupils are round and equally reacting to light. EOMI. No scleral icterus. No conjunctival pallor. Normocephalic, atraumatic. No pharyngeal erythema. No thyromegaly. CARDIOVASCULAR: S1 and S2 present. No murmurs, rubs, or gallops. PULMONARY: Chest is clear to auscultation, no wheezing or crackles. ABDOMEN: Soft, nontender, nondistended, normoactive bowel sounds. No palpable organomegaly. MUSCULOSKELETAL: No joint swelling or deformity. EXTREMITIES: No cyanosis, clubbing, or pedal edema. Lymphadenopathy diffuse including supraclavicular, jugular inguinal NEUROLOGICAL: Patient has weakness on the left side of the tongue but no other focal deficit was appreciated. SKIN: No rashes. 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 She had an MRI which didn't show any stroke or leptomeningeal enhancement, CT of the neck and chest as mentioned above. ENT will be consulted to evaluate the posterior pharynx. The of the abdomen did show diffuse abdominal lymphadenopathy and patient has significant swallow every valid the patient. Patient's diet was modified again today -Speech abnormality: Secondary to paralysis of the tongue, hypoglossal nerve palsy -Dysphagia: Patient the diet will be modified again by speech therapy continue D5 normal saline. -Moderate pulmonary hypertension -History of non-Hodgkin's lymphoma wasn't chemotherapy 4 years ago. Concern for transformation of this non-Hodgkin's lymphoma from low grade to high-grade, oncology valid the patient is recommending biopsy of the lymph nodes -Essential hypertension -DVT prophylaxis with Lovenox
[2020-03-16] MEDS: METOPROLOL TARTRATE 25 MG TAB PO SCH ×2 (09:08→20:08)
[2020-03-16] MEDS: ENOXAPARIN 40 MG/0.4 ML SYRINGE SQ SCH (09:08)
[2020-03-16] MEDS: ASPIRIN 325 MG TAB PO SCH (09:08)
[2020-03-16 09:57] LABS: Calcium 8.3 mg/dL (8.4-10.2); Potassium 3.9 mmol/L (3.5-5.1)
--- NOTE | 2020-03-16 10:54 | P.PN ---
<TangShanna - Last Filed: 03/16/20 10:42> Subjective Progress Note Date: 03/16/20 CHIEF COMPLAINT: Recurrent lymphoma HISTORY OF PRESENT ILLNESS: Patient was transferred from outside hospital for TIA with slurred speech. Patient reports that her speech and swallowing are still not back to normal. She has a known history of non-Hodgkin lymphoma. Surgery has been consulted for lymph node biopsy. Patient had flexible laryngoscopy with Dr. Ugarte yesterday which did reveal a left hypoglossal nerve palsy. Patient reports that the lymph nodes in her inguinal and along her neck are nonpainful. Afebrile. MRI of cervical spine ordered by oncology service PHYSICAL EXAM: VITAL SIGNS: Reviewed. GENERAL: Well-developed in no acute distress. HEENT: No sclera icterus. Extraocular movements grossly intact. Moist buccal mucosa. Head is atraumatic, normocephalic. ABDOMEN: Soft. Nondistended. Nontender. NEUROLOGIC: Alert and oriented. Cranial nerves II through XII grossly intact. Lymphatic: Palpable cervical lymph nodes noted bilaterally and palpable bilateral inguinal lymph nodes ASSESSMENT: 1. History of Non-Hodgkin's lymphoma 2. Cervical and inguinal lymphadenopathy 3. TIA PLAN: -Patient scheduled for inguinal lymph node biopsy tomorrow on 03/17/[address] Marks -Keep patient nothing by mouth after midnight Physician Head Stock Operator note has been reviewed by physician. Signing provider agrees with the documented findings, assessment, and plan of care. Objective - Vital Signs Vital signs: Vital Signs Temp 98.8 F 03/16/20 04:00 Pulse 84 03/16/20 04:00 Resp 18 03/16/20 04:00 BP 137/62 03/16/20 04:00 Pulse Ox 96 03/16/20 04:00 Intake & Output 03/15/20 03/16/20 03/16/20 18:59 06:59 18:59 Intake Total 620 Balance 620 Weight 52.5 kg Intake: IV 500 Dextrose 5%-0.9% NaCl 1, 500 000 ml @ 50 mls/hr IV . Q20H [facility] Rx#:[id number] Oral 120 Other: Voiding Method Toilet Toilet # Voids 2 1 - Labs CBC & Chem 7: 03/14/20 12:42 03/16/20 08:53 Labs: Abnormal Lab Results - Last 24 Hours (Table) 03/16/20 Range/Units 08:53 Chloride 108 H (98-107) mmol/L Glucose 164 H (74-99) mg/dL Calcium 8.3 L (8.4-10.2) mg/dL <Sage Marks - Last Filed: 03/16/20 17:14> Subjective As above. Patient with diffuse lymphadenopathy. Easily accessible lymph nodes in the right axilla felt to be safest. We'll proceed with right axillary lymph node biopsy tomorrow. Risks of bleeding, infection, scarring, seroma formation, numbness, nerve injury reviewed. She understands and wishes to proceed. Objective - Vital Signs Vital signs: Vital Signs Temp 98.5 F 03/16/20 12:00 Pulse 88 03/16/20 14:00 Resp 18 03/16/20 14:00 BP 122/74 03/16/20 12:00 Pulse Ox 95 03/16/20 12:00 Intake & Output 03/15/20 03/16/20 03/16/20 18:59 06:59 18:59 Intake Total 620 240 Balance 620 240 Weight 52.5 kg Intake: IV 500 Dextrose 5%-0.9% NaCl 1, 500 000 ml @ 50 mls/hr IV . Q20H [facility] Rx#:[id number] Oral 120 240 Other: Voiding Method Toilet Toilet Toilet # Voids 2 1 1 - Labs CBC & Chem 7: 03/14/20 12:42 03/16/20 08:53 Labs: Abnormal Lab Results - Last 24 Hours (Table) 03/16/20 Range/Units 08:53 Chloride 108 H (98-107) mmol/L Glucose 164 H (74-99) mg/dL Calcium 8.3 L (8.4-10.2) mg/dL
--- NOTE | 2020-03-16 14:26 | P.PN ---
Subjective Progress Note Date: 03/16/20 Principal diagnosis: TIA/CVA In f/u today Patient is still having difficulty swallowing, her diet has been modified, no fevers or choking at this time. She is able to cough. She is pending a lymph node biopsy today as well as an MRI of the C-spine. Objective - Vital Signs Vital signs: Vital Signs Temp 98.8 F 03/16/20 04:00 Pulse 84 03/16/20 04:00 Resp 18 03/16/20 04:00 BP 137/62 03/16/20 04:00 Pulse Ox 96 03/16/20 04:00 Intake & Output 03/15/20 03/16/20 03/16/20 18:59 06:59 18:59 Intake Total 620 Balance 620 Weight 52.5 kg Intake: IV 500 Dextrose 5%-0.9% NaCl 1, 500 000 ml @ 50 mls/hr IV . Q20H [facility] Rx#:[id number] Oral 120 Other: Voiding Method Toilet Toilet # Voids 2 1 1 - Constitutional General appearance: Present: average body habitus, cooperative, no acute distress - EENT Eyes: Present: anicteric sclerae, EOMI ENT: Present: hearing grossly normal - Respiratory Respiratory: bilateral: rales (few scattered) - Cardiovascular Heart sounds: normal: S1, S2 - Peripheral edema leg Peripheral Edema: bilateral: None - Gastrointestinal General gastrointestinal: Present: normal bowel sounds, soft - Neurologic Neurologic: Present: CNII-XII intact - Musculoskeletal Musculoskeletal: Present: generalized weakness, strength equal bilaterally - Psychiatric Psychiatric: Present: A&O x's 3, appropriate affect, intact judgment & insight - Labs CBC & Chem 7: 03/14/20 12:42 03/16/20 08:53 Labs: Abnormal Lab Results - Last 24 Hours (Table) 03/16/20 Range/Units 08:53 Chloride 108 H (98-107) mmol/L Glucose 164 H (74-99) mg/dL Calcium 8.3 L (8.4-10.2) mg/dL Assessment and Plan (1) Dysphagia Narrative/Plan: Patient has been evaluated by imaging reviewed with Radiologist by Dr. Mosher, Neurology and ENT. Currently pending MRI of the C-spine. Diet has been modified to reduce risk of aspiration Current Visit: Yes Status: Acute Priority: High Code(s): R13.10 - DYSPHAGIA, UNSPECIFIED SNOMED Code(s): 10380320 (2) Cervical lymphadenopathy Narrative/Plan: Pending MRI of the C-spine due to patient's symptoms, as all other workup so far has been negative. Evaluate to see if a node is compressing nerves causing patient's symptoms. Current Visit: Yes Status: Acute Priority: High Code(s): R59.0 - LOCALIZED ENLARGED LYMPH NODES SNOMED Code(s): 527078257 (3) Lymphoma Narrative/Plan: CT CAP, neck findings are most suggestive of recurrent lymphoma. Currently pending lymph node biopsy to see if this is the same low grade lymphoma or if it is transformed. I did contact patient's primary Oncologist Dr. Perfecto berger. I will fax them the reports and consults from this visit. I have requested that the staff obtain a CD with images on it for pt to take home. Did get follow-up for patient with her primary Oncologist 03/25 at 2 PM, this is documented in discharge plan. Current Visit: Yes Status: Chronic Priority: High Code(s): C85.90 - NON- HODGKIN LYMPHOMA, UNSPECIFIED, UNSPECIFIED SITE SNOMED Code(s): 825527912 Plan: Discussed case briefly with Internal Medicine. Anticipate discharge in the next 24-48 hours.
--- NOTE | 2020-03-16 15:14 | P.PN ---
Subjective Progress Note Date: 03/16/20 The patient was seen at bedside and the nurse her swallowing is somewhat better today compared to couple days back. Patient denies of any choking episodes. She denies of any focal weakness or numbness or visual disturbance. Patient does feel better today compared to couple days back. I reviewed that MRI of the brain with the reading radiologist today (Dr. Quintero) and he felt that the MRI of the brain possibly showing leptomeningeal enhancedment but not definitely. He said it did not look normal but again it was not definitive for leptomeningeal enhancement. Objective - Vital Signs Vital signs: Vital Signs Temp 98.8 F 03/16/20 04:00 Pulse 84 03/16/20 04:00 Resp 18 03/16/20 04:00 BP 137/62 03/16/20 04:00 Pulse Ox 96 03/16/20 04:00 Intake & Output 03/15/20 03/16/20 03/16/20 18:59 06:59 18:59 Intake Total 620 Balance 620 Weight 52.5 kg Intake: IV 500 Dextrose 5%-0.9% NaCl 1, 500 000 ml @ 50 mls/hr IV . Q20H [facility] Rx#:[id number] Oral 120 Other: Voiding Method Toilet Toilet # Voids 2 1 1 - Exam Neurologicalexam: Patient is alert and awake fully oriented. Attention, concentration and fund of knowledge is adequate. No aphasia or neglect. On cranial nerve exam. Pupils are round and reactive to light, visual luna are full on confrontation, extraocular muscles are intact with no nystagmus. Facial sensations normal. Face is symmetric, tongue protrudes to the left side. Speech is mild dysarthric, Patient can move her tongue to the right, but not at all to the left side. Questionable mild atrophy of the left tongue. No fasciculations elsewhere. Palatal elevation appears equal. Palatal sensation equal, but she had decreased gag. Shoulder shrug normal. Motor: Strength is 5/5 throughout. Sensation: Is normal to touch throughout. - Labs CBC & Chem 7: 03/14/20 12:42 03/16/20 08:53 Labs: Abnormal Lab Results - Last 24 Hours (Table) 03/16/20 Range/Units 08:53 Chloride 108 H (98-107) mmol/L Glucose 164 H (74-99) mg/dL Calcium 8.3 L (8.4-10.2) mg/dL Assessment and Plan Assessment: * 89-year-old female with acute onset of slurred speech, and difficulty swallowing. Examination reveals weakness of left side of the tongue with mild left xuan-tongue atrophy. Patient has very prominent lymph nodes in the neck. 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 Rule out compressive lesion from non-Hodgkin's lymphoma. Another possibility is the compression lesion from non-Hodgkin's lymphoma. * Cervical and inguinal lymphadenopathy * History of non-Hodgkin's lymphoma. * Dysphagia due to above Plan: I reviewed that MRI of the brain with the reading radiologist today (Dr. Quintero) and he felt that the MRI of the brain possibly showing leptomeningeal enhancedment but not definitely. He said it did not look normal but again it was not definitive for leptomeningeal enhancement. MRI of the cervical spine is ordered by the oncology team and is pending. I spoke with the patient regarding this finding and that she stated to speak with her niece, Marleen. I spoke with the patient niece (Marleen) via phone and she stated that the patient went through so much and that she does not want the patient to pursue with the lumbar puncture. Therefore I discontinued the consultation for anesthesiology. I notified the patient niece that the patient needs to follow-up with a neurologist as an outpatient if they still want to pursue with medical management. The patient is scheduled for inguinal lymph node biopsy tomorrow on 03/17/[address] Marks. From the patient's the niece discussion I felt like the she was leaning towards making her comfort care down the line possibly. But I will leave that discussion between the the patient, her niece, oncology and the primary team. Dalton Kenney MD Neuro-hospitalist. Time with Patient: Greater than 30
--- NOTE | 2020-03-16 16:23 | MR ---
EXAMINATION TYPE: MR cervical spine wo/w con DATE OF EXAM: 03/16/2020 COMPARISON: CT 03/13/2020 HISTORY: Hypoglossal nerve palsy TECHNIQUE: Multiplanar, multisequence images of the cervical spine were acquired utilizing 5.5 mL intravenous Ga davist gadolinium contrast. Diffusion weighted imaging was performed. C2-C3: No evidence for degenerative disc disease. No disc bulge/herniation or protrusion. No Canal stenosis. Foramina are patent bilaterally. C3-C4: Minimal posterior disc bulge, no significant spinal stenosis or foraminal encroachment. C4-C5: Posterior extension endplate disc complex contacts the anterior thecal sac. No significant spi nal stenosis or foraminal encroachment. C5-C6: There is a posterior central disc herniation. Posterior extension of endplate disc complex res ults in mild spinal stenosis. Uncovertebral joint hypertrophy results in bilateral foraminal encroach ment. C6-C7: Posterior extension endplate disc complex results in mild to moderate spinal stenosis. Bilater al foraminal encroachment is present right greater than left. C7-T1: There is a posterior central disc herniation possibly contacting the anterior cervical cord. O nly mild spinal stenosis, no significant foraminal encroachment. Cervical segments are intact. C2 vertebral body shows increased signal on T1 and T2-weighted sequence s in the dens, some mild enhancement and some similar changes noted to the anterior aspect of C1 as w ell as the lateral masses. There is stable alignment anterolisthesis grade 1 C3-4. Cervical spinal c ord is of normal signal. Craniovertebral junction relationships are within normal limits, arthropath y changes are present. There is multilevel spondylosis. Loss of disc height greatest at C4-5, C5-6 a nd C6-7. Bilateral cervical, submandibular adenopathy noted incidentally. Loss of disc height signal is greatest at C4-5, C5-6 and C6-7. T2 bright foci within the right lobe of the thyroid may represent colloid cysts within the thyroid. IMPRESSION: Degenerative disc disease, spinal stenosis or foraminal encroachment. Adenopathy is again seen. Signa l changes within the C1 and C2 vertebral body are noted but are indeterminate, correlate for any hist ory of treatment, radiation.
[2020-03-16] MEDS: ATORVASTATIN 40 MG TAB PO SCH (20:07)
[2020-03-17] MEDS: METOPROLOL TARTRATE 25 MG TAB PO SCH ×2 (08:50→20:06)
[2020-03-17] MEDS: ASPIRIN 325 MG TAB PO SCH (08:50)
--- NOTE | 2020-03-17 10:22 | P.DS ---
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 It was believed patient may have compression from this lymphadenopathy leading to hypoglossal nerve palsy leading to some dysphagia from atrophy of the tongue and speech abnormality from the atrophy and weakness of the left side of the tongue. 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 Patient had a CT of the neck and chest which showed significant lymphadenopathy in the supraclavicular area and jugular area and there is significant paratracheal lymphadenopathy as well. She does have inguinal lymphadenopathy as well. 03/15/2020 Patient is retaining food in mouth because of paralysis of time and the muscle paralysis in the throat area. And this is secondary to hypoglossal nerve palsy. Patient will be made nothing by mouth patient will be started on D5 normal at 50 mL per hour. Patient may end up needing a PEG tube placement same thing was discussed with the patient. Patient will need a biopsy of the lymph node CT of the abdomen that was done and it showed diffuse lymphadenopathy in the abdomen concern is transformation of her low-grade lymphoma to a higher grade. 03/16/2020 Patient was a valid by speech therapy and a modified her diet and consistency. Patient will not need any PEG tube at this time. Patient will undergo lymph node biopsy. Neurology will reevaluate the patient today. Possibility of discharge tomorrow. 03/17/2020 Patient the was evaluated by neurology yesterday and neurology discussed MRI with radiology and there is still a slight concern of leptomeningeal enhancement because of which are MRI was recommended neurologist discussed option of lumbar puncture with the patient and patient's daughter who declined aggressive workup like an LP. Patient will have for lymph node biopsy today and will be discharged today to follow up with her oncologist as an outpatient. Patient will be on ground solid food diet and thin liquid diet. 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 PHYSICAL EXAMINATION: GENERAL: The patient is alert and oriented x3, not in any acute distress. Well developed, well nourished. HEENT: Pupils are round and equally reacting to light. EOMI. No scleral icterus. No conjunctival pallor. Normocephalic, atraumatic. No pharyngeal erythema. No thyromegaly. CARDIOVASCULAR: S1 and S2 present. No murmurs, rubs, or gallops. PULMONARY: Chest is clear to auscultation, no wheezing or crackles. ABDOMEN: Soft, nontender, nondistended, normoactive bowel sounds. No palpable organomegaly. MUSCULOSKELETAL: No joint swelling or deformity. EXTREMITIES: No cyanosis, clubbing, or pedal edema. Lymphadenopathy diffuse including supraclavicular, jugular inguinal NEUROLOGICAL: Patient has weakness on the left side of the tongue but no other focal deficit was appreciated. SKIN: No rashes. 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 She had an MRI which didn't show any stroke or leptomeningeal enhancement, CT of the neck and chest as mentioned above. Patient had a cervical MRI results of which as mentioned above The of the abdomen did show diffuse abdominal lymphadenopathy and patient has significant swallow every valid the patient. Patient's diet was modified again today -Speech abnormality: Secondary to paralysis of the tongue, hypoglossal nerve palsy -Dysphagia: Patient the diet was modified by speech as discussed above -Moderate pulmonary hypertension -History of non-Hodgkin's lymphoma wasn't chemotherapy 4 years ago. Concern for transformation of this non-Hodgkin's lymphoma from low grade to high-grade, onc ology valid the patient is recommending biopsy of the lymph nodes today after which patient will be discharged -Essential hypertension Plan - Discharge Summary Discharge Rx Participant: No New Discharge Prescriptions: New Aspirin 81 mg PO DAILY #30 chewable Atorvastatin [Lipitor] 40 mg PO HS #30 tab Continue Metoprolol Tartrate [Lopressor] 25 mg PO BID Discharge Medication List Metoprolol Tartrate [Lopressor] 25 mg PO BID 03/12/20 [History] Aspirin 81 mg PO DAILY #30 chewable 03/17/20 [Rx] Atorvastatin [Lipitor] 40 mg PO HS #30 tab 03/17/20 [Rx] Follow up Appointment(s)/Referral(s): [facility], [NON-STAFF] - Mark Acuña MD [Primary Care Provider] - 3 Days Activity/Diet/Wound Care/Special Instructions: Appointment with patient's primary Oncologist Jr Grove 03/25/20 at 2 PM ([phone]) Patient will need outpatient speech therapy follow-up. Patient the need to be on ground solid food diet along with thin liquids the ground it can be advanced to chopped diet after evaluation by speech therapy as an outpatient. Patient will need to follow up with her oncologist Discharge Disposition: HOME WITH HOME HEALTH SERVICES
--- NOTE | 2020-03-17 10:43 | P.PAINCN ---
History of Present Illness - Reason for Consult Consult date: 03/17/20 - History of Present Illness I was consulted to do a lumbar puncture. After reviewing the notes from the primary care physician from yesterday, the family does not want to proceed with a lumbar puncture. I've expensive nurse that if they still want the procedure done they can give me a call. Past Medical History Past Medical History: Hypertension Additional Past Medical History / Comment(s): Non-hodgkins lymphoma History of Any Multi-Drug Resistant Organisms: None Reported Past Surgical History: No Surgical Hx Reported Past Anesthesia/Blood Transfusion Reactions: No Reported Reaction Past Psychological History: No Psychological Hx Reported Smoking Status: Never smoker Past Alcohol Use History: None Reported Past Drug Use History: None Reported Medications and Allergies Home Medications Medication Instructions Recorded Confirmed Type Metoprolol Tartrate [Lopressor] 25 mg PO BID 03/12/20 03/12/20 History Aspirin 81 mg PO DAILY #30 chewable 03/17/20 Rx Atorvastatin [Lipitor] 40 mg PO HS #30 tab 03/17/20 Rx Allergies Allergy/AdvReac Type Severity Reaction Status Date / Time Penicillins Allergy Unknown Verified 03/12/20 17:10 Physical Exam Vitals: Vital Signs Temp Pulse Resp BP Pulse Ox 03/17/20 08:00 96.5 F L 86 16 129/62 98 03/17/20 03:53 98.0 F 77 17 133/65 96 03/16/20 23:33 98.7 F 76 18 143/76 95 03/16/20 20:00 99.0 F 86 17 135/75 96 03/16/20 16:00 98.4 F 78 18 140/73 96 03/16/20 14:00 88 18 03/16/20 12:00 98.5 F 88 18 122/74 95 Intake and Output 03/16/20 03/17/20 03/17/20 22:59 06:59 14:59 Intake Total 240 Balance 240 Intake: Oral 240 Other: Voiding Method Toilet Toilet Toilet # Voids 2 2 Weight 51.8 kg Results CBC & Chem 7: 03/14/20 12:42 03/16/20 08:53 PQRS Measure Charge Sheet PQRS Narrative: Do You Want the Pneumonia Vaccine Up to Date Vaccine AT THIS TIME? Blood Pressure [Left Arm] 129/62 Blood Pressure 157/72 Pain Intensity [None] 0 Pain Intensity 0 Scale Used Numeric (1 - 10) Home Medications: Ambulatory Orders Metoprolol Tartrate [Lopressor] 25 mg PO BID 03/12/20 Aspirin 81 mg PO DAILY #30 chewable 03/17/20 Atorvastatin [Lipitor] 40 mg PO HS #30 tab 03/17/20
[2020-03-17] MEDS ORDERED: LACTATED RINGERS 1,000 ML IV ONE (10:51)
[2020-03-17] MEDS ORDERED: ONDANSETRON 4 MG/2 ML VIAL ONE (10:57)
[2020-03-17] MEDS ORDERED: ONDANSETRON 4 MG/2 ML VIAL IVP ONE (10:58)
[2020-03-17] MEDS ORDERED: CLINDAMYCIN 600 MG in DEXTROSE 5% IN WATER 50 ML IVPB STA ×2 (11:51)
[2020-03-17] MEDS ORDERED: LIDOCAINE 1% INJ 10MG/ML (20 ML MDV) ONE (12:25)
[2020-03-17] MEDS ORDERED: fentaNYL (PF) 50 MCG/ML 2 ML AMP ONE (12:25)
[2020-03-17] MEDS ORDERED: PROPOFOL 10 MG/ML 20 ML VIAL IV ONE (12:25)
[2020-03-17] MEDS: SODIUM CHLORIDE 0.9% 50 ML with CLINDAMYCIN 600 MG IV ONE ×4 (12:52→16:19)
[2020-03-17] MEDS ORDERED: BUPIVACAINE (PF) 0.25% 30 ML VIAL SQ ONE ×2 (12:57→13:09)
[2020-03-17] MEDS ORDERED: HYDROcodone/APAP 5-325MG 1 EACH TAB PO PRN (13:19)
[2020-03-17 14:20] VITALS: BMI 24.7
--- NOTE | 2020-03-17 16:46 | P.OP ---
Date of Procedure: 03/17/20 Procedure(s) Performed: PREOPERATIVE DIAGNOSIS: Diffuse adenopathy POSTOPERATIVE DIAGNOSIS: Same PROCEDURE: Axillary lymph node biopsy SURGEON: Kendrick EBL: Minimal ANESTHESIA: General COMPLICATIONS: None OPERATIVE PROCEDURE: Patient place never table in the supine position. The patient was placed under general anesthesia at that time. The right axilla was prepped and draped sterilely. An oblique incision was made overlying the palpable mass. The patient had a conglomeration of 2-3 large lymph nodes that were removed as one piece. These were in the deep space. Dissection took place using both blunt dissection, electrocautery, and the LigaSure device. No bleeding was seen. Specimen was sent to pathology fresh. Subcutaneous tissues closed using 3-0 Vicryl sutures. Skin closed using 4-0 Monocryl sutures. Skin glue and sterile dressings applied. DISPOSITION: Stable to recovery room
[2020-03-17] MEDS: ENOXAPARIN 40 MG/0.4 ML SYRINGE SQ SCH (16:48)
[2020-03-17] MEDS: ATORVASTATIN 40 MG TAB PO SCH ×2 (20:06→20:07)
[2020-03-18] MEDS: ASPIRIN 325 MG TAB PO SCH (09:09)
[2020-03-18] MEDS: METOPROLOL TARTRATE 25 MG TAB PO SCH (09:09)
[2020-03-18] MEDS: ENOXAPARIN 40 MG/0.4 ML SYRINGE SQ SCH (09:09)
[2020-03-18 09:12] VITALS: RESP 16; TEMP 97.5
--- NOTE | 2020-03-18 10:53 | P.PN ---
<Shanna Beckwith - Last Filed: 03/18/20 10:48> Subjective Progress Note Date: 03/18/20 CHIEF COMPLAINT: Recurrent lymphoma HISTORY OF PRESENT ILLNESS: Patient was transferred from outside hospital for TIA with slurred speech. She has a known history of non-Hodgkin lymphoma. Patient is status post right axillary lymph node biopsy. She denies pain. Afebrile. She is likely scheduled for discharge later today to either ECF or home. PHYSICAL EXAM: VITAL SIGNS: Reviewed. GENERAL: Well-developed in no acute distress. HEENT: No sclera icterus. Extraocular movements grossly intact. Moist buccal mucosa. Head is atraumatic, normocephalic. ABDOMEN: Soft. Nondistended. Nontender. NEUROLOGIC: Alert and oriented. Cranial nerves II through XII grossly intact. Lymphatic: Right axilla lymph node biopsy incision site clean dry and intact ASSESSMENT: 1. History of Non-Hodgkin's lymphoma 2. Diffuse adenopathy status post right axillary lymph node biopsy 3. TIA PLAN: -Continue supportive care -Follow up on pathology results from lymph node biopsy Physician Cream Dipper note has been reviewed by physician. Signing provider agrees with the documented findings, assessment, and plan of care. Objective - Vital Signs Vital signs: Vital Signs Temp 97.5 F L 03/18/20 08:00 Pulse 87 03/18/20 08:00 Resp 16 03/18/20 08:00 BP 135/73 03/18/20 08:00 Pulse Ox 96 03/18/20 08:00 Intake & Output 03/17/20 03/18/20 03/18/20 18:59 06:59 18:59 Intake Total 679 240 Output Total 205 Balance 474 240 Weight 51.8 kg 52.1 kg Intake: IV 554 Oral 125 240 Output: Urine 200 Estimated Blood Loss 5 Other: Voiding Method Toilet Toilet # Voids 1 1 - Labs CBC & Chem 7: 03/14/20 12:42 03/16/20 08:53 <Sage Marks - Last Filed: 03/18/20 20:05> Subjective As above. Doing well today. Incision clean and dry. May discharge. Objective - Vital Signs Vital signs: Vital Signs Temp 97.5 F L 03/18/20 08:00 Pulse 73 03/18/20 12:00 Resp 16 03/18/20 14:00 BP 112/51 03/18/20 12:00 Pulse Ox 95 03/18/20 12:00 Intake & Output 03/18/20 03/18/20 03/19/20 06:59 18:59 06:59 Intake Total 690 Balance 690 Weight 52.1 kg Intake: Oral 690 Other: Voiding Method Toilet Toilet # Voids 1 - Labs CBC & Chem 7: 03/14/20 12:42 03/16/20 08:53
--- NOTE | 2020-03-18 11:05 | P.PN ---
Subjective Progress Note Date: 03/18/20 The patient was seen at bedside and she stated that she is feeling better today compared to initial presentation. She seems that she is NOW MORE CLEAR AND THE LAST COUPLE DAYS COMPARED TO HER INITIAL PRESENTATION. DENIES OF ANY NEW WEAKNESS, NUMBNESS OR VISUAL DISTURBANCE. Objective - Vital Signs Vital signs: Vital Signs Temp 97.5 F L 03/18/20 08:00 Pulse 87 03/18/20 08:00 Resp 16 03/18/20 08:00 BP 135/73 03/18/20 08:00 Pulse Ox 96 03/18/20 08:00 Intake & Output 03/17/20 03/18/20 03/18/20 18:59 06:59 18:59 Intake Total 679 240 Output Total 205 Balance 474 240 Weight 51.8 kg 52.1 kg Intake: IV 554 Oral 125 240 Output: Urine 200 Estimated Blood Loss 5 Other: Voiding Method Toilet Toilet # Voids 1 1 - Exam Neurologicalexam: Patient is alert and awake fully oriented. Attention, concentration and fund of knowledge is adequate. No aphasia or neglect. On cranial nerve exam. Pupils are round and reactive to light, visual luna are full on confrontation, extraocular muscles are intact with no nystagmus. Facial sensations normal. Face is symmetric, tongue protrudes to the left side. Speech is minimal dysarthric, Patient can move her tongue to the right, but not at all to the left side. Questionable mild atrophy of the left tongue. No fasciculations elsewhere. Palatal elevation appears equal. Palatal sensation equal, but she had decreased gag. Shoulder shrug normal. Motor: Strength is 5/5 throughout. Sensation: Is normal to touch throughout. - Labs CBC & Chem 7: 03/14/20 12:42 03/16/20 08:53 Assessment and Plan Assessment: * 89-year-old female with acute onset of slurred speech, and difficulty swallowing. Examination reveals weakness of left side of the tongue with mild left xuan-tongue atrophy. Patient has very prominent lymph nodes in the neck. 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 Rule out compressive lesion from non-Hodgkin's lymphoma. Another possibility is the compression lesion from non-Hodgkin's lymphoma. * Cervical and inguinal lymphadenopathy * History of non-Hodgkin's lymphoma. * Dysarthria due to above---improve * Dysphagia due to above--improving Plan: I reviewed that MRI of the brain with the reading radiologist today (Dr. Quintero) and he felt that the MRI of the brain possibly showing leptomeningeal enhancedment but not definitely. He said it did not look normal but again it was not definitive for leptomeningeal enhancement. MRI of the cervical spine is ordered by the oncology team and is pending. I spoke with the patient niece (Marleen) via phone on 03/16/2020 (because the patient wanted her to make that decision on her behalf) and niece stated that the patient went through so much and that she does not want the patient to pursue with the lumbar puncture. I notified the patient niece that the patient needs to follow-up with a neurologist as an outpatient if they still want to pursue with medical management. The patient went for a biopsy of of the axillary lymph nodes over the right on the 03/17/2020. The plan was discussed with the patient as well as the patient's nurse. Dalton Kenney MD Neuro-hospitalist. Time with Patient: Less than 30
[2020-03-18 12:26] VITALS: BP 112/51; PULSE 73
--- NOTE | 2020-03-18 12:37 | P.DS ---
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 Patient will not require any subacute rehabilitation at this time. Patient will be discharged home. Her lymph node biopsy results will be available for about a week same thing was discussed with the patient and patient need to closely follow with PCP and her oncologist. PHYSICAL EXAMINATION: GENERAL: The patient is alert and oriented x3, not in any acute distress. Well developed, well nourished. HEENT: Pupils are round and equally reacting to light. EOMI. No scleral icterus. No conjunctival pallor. Normocephalic, atraumatic. No pharyngeal erythema. No thyromegaly. CARDIOVASCULAR: S1 and S2 present. No murmurs, rubs, or gallops. PULMONARY: Chest is clear to auscultation, no wheezing or crackles. ABDOMEN: Soft, nontender, nondistended, normoactive bowel sounds. No palpable organomegaly. MUSCULOSKELETAL: No joint swelling or deformity. EXTREMITIES: No cyanosis, clubbing, or pedal edema. Lymphadenopathy diffuse including supraclavicular, jugular inguinal NEUROLOGICAL: Patient has weakness on the left side of the tongue but no other focal deficit was appreciated. SKIN: No rashes. Plan - Discharge Summary Discharge Rx Participant: No New Discharge Prescriptions: New Aspirin 81 mg PO DAILY #30 chewable Atorvastatin [Lipitor] 40 mg PO HS #30 tab Continue Metoprolol Tartrate [Lopressor] 25 mg PO BID Discharge Medication List Metoprolol Tartrate [Lopressor] 25 mg PO BID 03/12/20 [History] Aspirin 81 mg PO DAILY #30 chewable 03/17/20 [Rx] Atorvastatin [Lipitor] 40 mg PO HS #30 tab 03/17/20 [Rx] Follow up Appointment(s)/Referral(s): [facility], [NON-STAFF] - Mark Acuña MD [Primary Care Provider] - 3 Days Activity/Diet/Wound Care/Special Instructions: Appointment with patient's primary Oncologist Jr Grove 03/25/20 at 2 PM ([phone]) Patient will need outpatient speech therapy follow-up. Patient the need to be on ground solid food diet along with thin liquids the ground it can be advanced to chopped diet after evaluation by speech therapy as an outpatient. Patient will need to follow up with her oncologist Discharge Disposition: HOME WITH HOME HEALTH SERVICES
--- NOTE | 2020-03-18 14:26 | P.PN ---
Subjective Progress Note Date: 03/18/20 Principal diagnosis: TIA/CVA. Hx lymphoma, concerns for recurrence In f/u today Patient is sitting up eating lunch. Denies any difficulties swallowing today with diet modifications. She had her lymph node biopsy. Objective - Vital Signs Vital signs: Vital Signs Temp 97.5 F L 03/18/20 08:00 Pulse 73 03/18/20 12:00 Resp 16 03/18/20 12:00 BP 112/51 03/18/20 12:00 Pulse Ox 95 03/18/20 12:00 Intake & Output 03/17/20 03/18/20 03/18/20 18:59 06:59 18:59 Intake Total 679 690 Output Total 205 Balance 474 690 Weight 51.8 kg 52.1 kg Intake: IV 554 Oral 125 690 Output: Urine 200 Estimated Blood Loss 5 Other: Voiding Method Toilet Toilet Toilet # Voids 1 1 - Constitutional General appearance: Present: average body habitus, cooperative, no acute distress - EENT Eyes: Present: anicteric sclerae, EOMI ENT: Present: hearing grossly normal - Respiratory Details: resp even and unlabored - Integumentary Integumentary: Present: normal - Neurologic Neurologic: Present: CNII-XII intact - Psychiatric Psychiatric: Present: A&O x's 3, appropriate affect, intact judgment & insight - Labs CBC & Chem 7: 03/14/20 12:42 03/16/20 08:53 Assessment and Plan (1) Dysphagia Narrative/Plan: Nothing on c-spine MRI to suggest underlying cause. Pt doing well on modified diet Current Visit: Yes Status: Acute Priority: High Code(s): R13.10 - DYSPHAGIA, UNSPECIFIED SNOMED Code(s): 01046000 (2) Cervical lymphadenopathy Narrative/Plan: Nothing acute in MRI to suggest lymphadenopathy is compressing nerves causing patient's symptoms. She is swallowing better with diet modifications Current Visit: Yes Status: Acute Priority: High Code(s): R59.0 - LOCALIZED ENLARGED LYMPH NODES SNOMED Code(s): 014752171 (3) Lymphoma Narrative/Plan: CT CAP, neck findings are most suggestive of recurrent lymphoma. Currently pending lymph node biopsy to see if this is the same low grade lymphoma or if it is transformed. I did contact patient's primary Oncologist Dr. Grove ofc. Faxed all currently available reports and consults from this visit. Pt should have a CD with images on it to take with her. Patient has f/u appt with her primary Oncologist 03/25 at 2 PM, this is documented in discharge plan. I told pt about it. Current Visit: Yes Status: Chronic Priority: High Code(s): C85.90 - NON- HODGKIN LYMPHOMA, UNSPECIFIED, UNSPECIFIED SITE SNOMED Code(s): 910639374
--- NOTE | 2020-03-23 06:57 | CDI ---
Documentation Clarification Form Date: 03/23/20 From: Sara Alfredo Phone: If you have a question about this query, please contact Bertha Segovia, Acct Exec at [phone] between 8am and 5pm. Admit Date: 03/12/2020 04:56:00 PM Patient Name: Catalina Cordova Visit Number: [id number] Discharge Date: 03/18/2020 03:12:00 PM ATTENTION: The Clinical Documentation Specialists (CDI) and [facility] Coding Staff appreciate your assistance in clarifying documentation. Please respond to the clarification below the line at the bottom and electronically sign. The CDI & [facility] Coding staff will review the response and follow-up if needed. Please note: Queries are made part of the Legal Health Record. If you have any questions, please contact the author of this message via ITS. Dr. 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 Documentation states: Reported history of non-Hodgkin lymphoma treated with chemotherapy until insurance did not cover the chemotherapy being given, concern for transformation to high-grade. Patient history/risk factors: HTN, pulmonary HTN, DDD-cervical with spinal stenosis Clinical Indicators: hypoglossal nerve palsy, paralysis of tongue, dysarthria Treatment: biopsy of axillary lymph nodes, OP speech therapy, modification of patient' diet, follow-up with oncologist In your professional opinion, do you agree with the pathology report specifying non-Hodgkin B-cell lymphoma ? Yes No Other (please specify) Unable to determine Probably will be a good cushion for oncologist. This query is not necessary MTDD
--- NOTE | 2020-03-26 05:46 | CDI ---
Documentation Clarification Form Date: 03/26/20 From: Sara Alfredo Phone: If you have a question about this query, please contact Bertha Segovia, Natural History Collections Curator at [phone] between 8am and 5pm Admit Date: 03/12/2020 04:56:00 PM Patient Name: Catalina Cordova Visit Number: [id number] Discharge Date: 03/18/2020 03:12:00 PM ATTENTION: The Clinical Documentation Specialists (CDI) and [employer] Coding Staff appreciate your assistance in clarifying documentation. Please respond to the clarification below the line at the bottom and electronically sign. The CDI & [employer] Coding staff will review the response and follow-up if needed. Please note: Queries are made part of the Legal Health Record. If you have any questions, please contact the author of this message via ITS. Dr. 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 Documentation states: Reported history of non-Hodgkin lymphoma treated with chemotherapy until insurance did not cover the chemotherapy being given, concern for transformation to high-grade. Patient history/risk factors: HTN, pulmonary HTN, DDD-cervical with spinal stenosis Clinical Indicators: hypoglossal nerve palsy, paralysis of tongue, dysarthria Treatment: biopsy of axillary lymph nodes, OP speech therapy, modification of patient' diet, follow-up with oncologist In your professional opinion, do you agree with the pathology report specifying non-Hodgkin B-cell lymphoma ? Yes No Other (please specify) Unable to determine MTDD
== END 2020-03-18 15:12 | disposition home health service (06) | DRG 41 ==
LOC: EC 16:21 → 3SCARD 16:56
PROVIDERS: ADMIT Internal Medicine; ATTEND Internal Medicine
PROC: 0CJS8ZZ Inspection of Larynx, Via Natural or Artificial Opening Endoscopic (ICD-10-PCS; 2020-03-15)
PROC: 07B50ZX Excision of Right Axillary Lymphatic, Open Approach, Diagnostic (ICD-10-PCS; principal; 2020-03-17 11:35)
DX: G51.0 Bell's palsy (principal); C85.91 Non-Hodgkin lymphoma, unspecified, lymph nodes of head, face, and neck; G52.3 Disorders of hypoglossal nerve; I27.20 Pulmonary hypertension, unspecified; I11.9 Hypertensive heart disease without heart failure; K14.8 Other diseases of tongue; R47.1 Dysarthria and anarthria; Z20.828 Contact with and (suspected) exposure to other viral communicable diseases; M50.321 Other cervical disc degeneration at C4-C5 level; M48.02 Spinal stenosis, cervical region; R00.0 Tachycardia, unspecified; I65.23 Occlusion and stenosis of bilateral carotid arteries; R13.10 Dysphagia, unspecified; I35.8 Other nonrheumatic aortic valve disorders; H91.90 Unspecified hearing loss, unspecified ear; Z79.899 Other long term (current) drug therapy; Z92.21 Personal history of antineoplastic chemotherapy; Z88.0 Allergy status to penicillin
CPT/HCPCS: 70491; 70553; 71260; 72156; 74177; 80048; 80053; 80061; 83615; 84550; 85025; 87635; 88307; 88341; 88342; 93306; 93880; 99285